=== PATIENT | male | born 1980 | race Caucasian/White ===

== ENCOUNTER 2022-01-22 16:00 | Emergency (ER) | payer MEDICAID ==
[~2022-01-22] VITALS: Ht 180.3 cm; Wt 86.2 kg
[2022-01-22] MEDS ORDERED: AMPH15TA2 PO (16:48)
--- NOTE | 2022-01-22 16:49 | NUR ---
ANXIETY ATTACK; OFF HIS PSYCH MEDS FOR 4 DAYS.
--- NOTE | 2022-01-22 16:58 | NUR ---
Patient does not wish to proceed with medical care recommended by Dr. Boateng. Patient given information related to possible complications, up to and including , which could occur as a result of leaving the hospital at this time. Patient verbalizes understanding of risks involved due to leaving against medical advice. Patient has signed AMA form.
[2022-01-22 16:59] VITALS: BP 131/76
== END 2022-01-22 16:59 | disposition left against medical advice (07) ==
LOC: ER 16:03
DX: F41.9 Anxiety disorder, unspecified (principal); F32.A Depression, unspecified; Z79.899 Other long term (current) drug therapy

== ENCOUNTER 2022-05-29 10:34 | Inpatient (IN) | payer MEDICAID ==
[~2022-05-29] VITALS: Ht 180.3 cm; Wt 86.2 kg
[~2022-05-29 10:34] MED LIST: AMPH15TA2 PO
--- NOTE | 2022-05-29 10:52 | NUR ---
R HIP PAIN SINCE FRIDAY S/P HIP REPLACEMENT SURGERY. TO ER BED 3, HOOKED TO MONITOR, CHANGED TO HOSP GOWN, WARM BLANKET PROVIDED, PATIENT AAOx4, NOT IN DISTRESS, AWAITING MD BAZAN
--- NOTE | 2022-05-29 11:34 | NUR ---
DR CAST AT BEDSIDE
[2022-05-29] MEDS ORDERED: ONDANSETRON HCL/PF 4 MG/2 ML VIAL ONE (11:49)
[2022-05-29] MEDS ORDERED: MORPHINE SULFATE INJ 4 MG/ML DISP.SYRIN ONE ×2 (11:49→13:40)
[2022-05-29] MEDS ORDERED: ONDANSETRON HCL/PF 4 MG/2 ML VIAL IV ONE (12:00)
[2022-05-29] MEDS ORDERED: IV NS 0.9% 1,000 ML IV ONE (12:00)
[2022-05-29] MEDS ORDERED: MORPHINE SULFATE INJ 2 MG/ML DISP.SYRIN IV ONE ×2 (12:00→13:00)
--- NOTE | 2022-05-29 12:18 | NUR ---
RAPID COVID SWAB DONE AND SENT TO LAB
[2022-05-29 12:20] LABS: BASOPHILS # (AUTO) 0.1 K/uL (0.0-0.2); BASOPHILS % (AUTO) 0.9 % (0.0-2.0); EOSINOPHILS % (AUTO) 1.1 % (0.0-6.0); HEMATOCRIT 39 % (39-51); HEMOGLOBIN 12.9 g/dL (13.5-17.5); LYMPHOCYTES % (AUTO) 18.8 % (20.0-44.0); MEAN CORPUSCULAR HGB CONC 33 g/dl (31.0-36.0); MEAN CORPUSCULAR VOLUME 94 fL (80-96); MONOCYTES # (AUTO) 0.4 K/uL (0.1-1.30); MONOCYTES % (AUTO) 4.2 % (2.0-12.0); NEUTROPHILS # (AUTO) 7.9 K/uL (1.8-8.9); PLATELET COUNT (AUTO) 381 K/uL (150-450); RED BLOOD CELL COUNT(AUTO) 4.09 MIL/uL (4.5-6.0); WHITE BLOOD COUNT (AUTO) 10.6 K/uL (4.3-11.0)
[2022-05-29 12:52] LABS: CALCIUM, SERUM 9.5 mg/dL (8.5-10.1); CREATININE 0.9 mg/dL (0.6-1.3); POTASSIUM 4.4 mmol/L (3.5-5.1)
[2022-05-29] MEDS ORDERED: ALPR2TAB2 PO (13:02)
[2022-05-29] MEDS ORDERED: HYDR-3980 PO (13:02)
--- NOTE | 2022-05-29 16:13 | NUR ---
GOT BED 304-1
--- NOTE | 2022-05-29 16:28 | NUR ---
REPORT GIVEN TO [facility] UNIT
[2022-05-29] MEDS ORDERED: ONDANSETRON HCL/PF 4 MG/2 ML VIAL IVP PRN (17:30)
[2022-05-29] MEDS ORDERED: Z GUARD REMEDY 4 OZ OINT TP PRN (17:30)
[2022-05-29] MEDS ORDERED: ACETAMINOPHEN 325 MG TABLET PO PRN (17:30)
[2022-05-29] MEDS: ENOXAPARIN SODIUM 40 MG/0.4 ML DISP.SYRIN SQ SCH (17:32)
[2022-05-29] MEDS: MORPHINE SULFATE INJ 2 MG/ML DISP.SYRIN IV PRN ×2 (17:34→21:54)
[2022-05-29] MEDS: ALPRAZOLAM 0.5 MG TABLET PO PRN (17:44)
[2022-05-29 18:35] VITALS: BP 127/70
--- NOTE | 2022-05-29 18:43 | NUR ---
RN ADMITTING/CLOSING NOTES PATIENT ARRIVED TO UNIT @1730 VIA GURNEY. PATIENT A/Ox4, ABLE TO MAKE NEEDS KNOWN. STABLE ON ROOM AIR. IV ACCESS RAC #20 SL. INTACT AND PATENT. PATIENT V/S STABLE, COMPLAINED OF PAIN REQUESTING PAIN MEDICATION. PATIENT WAS ORIENTED TO ROOM AND STAFF. PRN MORPHINE AND XANAX GIVEN BEFORE FULL BODY CHECK WAS COMPLETED. CARDIAC WNL, RESPIRATORY WNL, GI/ WNL, SKIN ISSUES: R HIP SURGICAL SITE AKILA AND DRESSING IN PLACE. ALL PRESCRIBED MEDICATION ADMINISTERED. SAFETY MEASURES MAINTAINED: BED LOCKED AND IN LOWEST POSITION, HOB ELEVATED, SIDE RAILS UPx2, CALL LIGHT WITHIN REACH. WILL ENDORSE TO NEXT SHIFT ANY FARSHAD.
--- NOTE | 2022-05-29 19:40 | NUR ---
RN OPENING NOTES; RECEIVED PT IN AAOX4,ABLE TO VERBALIZE NEEDS,RANJEET WELL ON RM AIR NO SIGN SOB/DISTRESS NOTED,NO COMPLAINE OF PAIN AND DISCOMFORT AT THIS TIME,IV ACCESS ON RAC 20G SL,PATENT AND INTACT,SAFETY MEASURE INPLACE,CALL LIGHT WITHIN REACH,WILL CONTINUE TO MONITOR.
[2022-05-29 20:00] VITALS: BP 119/92
--- NOTE | 2022-05-29 21:54 | NUR ---
RN NOTES; PT COMPLAINED OF RIGHT HIP PAIN 10/10,PRN MORPHINE 4MG INJ WAS GIVEN,NO SIGN A/R NOTED.
[2022-05-30] MEDS: MORPHINE SULFATE INJ 2 MG/ML DISP.SYRIN IV PRN ×5 (02:19→20:26)
--- NOTE | 2022-05-30 02:19 | NUR ---
RN NOTES; PT COMPLAINED OF RIGHT HIP PAIN 10/10,PRN MORPHINE 4MG INJ WAS GIVEN,NO SIGN A/R NOTED.
[2022-05-30 06:06] LABS: BASOPHILS # (AUTO) 0.1 K/uL (0.0-0.2); BASOPHILS % (AUTO) 0.8 % (0.0-2.0); EOSINOPHILS % (AUTO) 4.3 % (0.0-6.0); HEMATOCRIT 36 % (39-51); HEMOGLOBIN 11.8 g/dL (13.5-17.5); LYMPHOCYTES % (AUTO) 31.8 % (20.0-44.0); MEAN CORPUSCULAR HGB CONC 33 g/dl (31.0-36.0); MEAN CORPUSCULAR VOLUME 94 fL (80-96); MONOCYTES # (AUTO) 0.6 K/uL (0.1-1.30); NEUTROPHILS # (AUTO) 5.4 K/uL (1.8-8.9); NEUTROPHILS % (AUTO) 57.1 % (43.0-81.0); PLATELET COUNT (AUTO) 401 K/uL (150-450); RED BLOOD CELL COUNT(AUTO) 3.78 MIL/uL (4.5-6.0); WHITE BLOOD COUNT (AUTO) 9.5 K/uL (4.3-11.0)
[2022-05-30 06:27] LABS: CALCIUM, SERUM 8.9 mg/dL (8.5-10.1); CREATININE 0.8 mg/dL (0.6-1.3); MAGNESIUM 1.8 mg/dL (1.8-2.4); PHOSPHORUS 4.4 mg/dL (2.5-4.9); POTASSIUM 4.3 mmol/L (3.5-5.1)
--- NOTE | 2022-05-30 06:28 | NUR ---
RN CLOSING NOTES; PT IN BED AAOX4,ABLE TO VERBALIZE NEEDS,RANJEET WELL ON RM AIR NO SIGN SOB/DISTRESS NOTED, PT ASKING MORPHINE 4MG EVERY 4HRS,V/S WAS TAKEN WITHIN NORMAL LIMITS,DUE MEDS GIVEN ORDER,ALL NEEDS ATTENDED,IV ACCESS ON RAC 20G SL,PATENT AND INTACT,SAFETY MEASURE INPLACE,CALL LIGHT WITHIN REACH,WILL ENDORSED TO NEXT SHIFT.
--- NOTE | 2022-05-30 07:30 | NUR ---
RN OPENING NOTES RECEIVED PT IN BED, AWAKE, A/O X4, ABLE TO VERBALIZE NEEDS, ON ROOM AIR, NO SIGNS OF DISTRESS OR SOB. PATIENT IS COMPLAINING OF RIGHT HIP PAIN, REQUESTING PAIN MEDICATIONS. PT HAS IV ACCESS ON RAC 20G SL, IV PATENT AND INTACT, SAFETY MEASURE IN PLACE: CALL LIGHT WITHIN REACH, BED IN LOWEST LOCKED POSITION, SIDE RAILS UP X2, WILL CONTINUE TO MONITOR.
[2022-05-30 08:00] VITALS: BP 148/78
--- NOTE | 2022-05-30 08:00 | NUR ---
RN NOTES PATIENT COMPLAINING OF RIGHT HIP/LEG PAIN, RATING 9/10, MORPHINE 4MG GIVEN AT 0800. PATIENT WANTS PAIN MEDICATIONS ON THE CLOCK.
[2022-05-30] MEDS: ALPRAZOLAM 0.5 MG TABLET PO PRN ×2 (08:11→16:55)
[2022-05-30] MEDS ORDERED: GABA300C PO (08:44)
[2022-05-30] MEDS ORDERED: AMPHET ASP/AMPHET/D-AMPHET 10 MG TABLET PO SCH (09:00)
[2022-05-30 16:10] VITALS: BP 127/79
[2022-05-30] MEDS: ENOXAPARIN SODIUM 40 MG/0.4 ML DISP.SYRIN SQ SCH (18:27)
--- NOTE | 2022-05-30 18:57 | NUR ---
RN CLOSING NOTES PATIENT IN BED ALERT/ORIENTED X4, ABLE TO VERBALIZE NEEDS, ON ROOM AIR WITH NO SIGN SOB/DISTRESS NOTED, PT ASKING FOR MORPHINE 4MG EVERY 4HRS. ALL NEEDS ATTENDED, IV ACCESS ON RAC 20G SL, PATENT AND INTACT. PATIENT ANTICIPATED DISCHARGE FOR TONIGHT 05/30/22. SAFETY MEASURE IN PLACE, CALL LIGHT WITHIN REACH,WILL ENDORSED TO NEXT SHIFT.
--- NOTE | 2022-05-30 19:30 | NUR ---
MS RN OPENING NOTE RECEIVED PT BED, AWAKE. PT IS DISCHARGED, BUT HE IS AWAITING FOR HIS FRIEND TO PICK HIM UP AT 1999. PT A/O X 4, ABLE TO VERBALIZE NEEDS. NO ACUTE DISTRESS NOTED. RESPIRATION EVEN, AND UNLABORED. PT COMPLAINS OF PAIN TO RIGHT HIP. PAIN MED IN PLACE, BUT PAIN MED DUE AT 20:41. PT WAS EXPLAINED THAT PAIN MED MORPHINE IS NOT DUE YET. SAFETY MEASURES IN PLACE: BED LOCKED IN LOW POSITION, SIDE RAILS UP X 2, CALL LIGHT WITHIN REACH. WILL CONTINUE TO MONITOR PT.
[2022-05-30 20:00] VITALS: BP 134/78
--- NOTE | 2022-05-30 20:20 | NUR ---
MS RN NOTE PT IS DEMANDING TO GET HIS PAIN MED. EXPLAINED TO PT AGAIN THAT PAIN MED NOT DUE NOW. PT IS YELLING, AND CURSING. HE IS STATING THAT HE RECEIVED HIS PAIN MED LAST BEFORE 1600 INSTEAD OF 1641, AND IT HAS BEEN OVER 4 HOURS SINCE HE HAD HIS LAST PAIN MED. COMPUTER SHOWS THAT THE LAST TIME PT WAS GIVEN PAIN MED MORPHINE, WAS AT 1641. BUT PT IS ACCUSING NURSE, AND CHARGE NURSE OF DELAYING ADMINISTRATION OF PAIN MED.CHARGE NURSE PRESENT AT BEDSIDE. CHARGE NURSE STATES IT IS OK FOR NURSE TO ADMINISTER PAIN MED TO PT NOW. PAIN MED GIVEN TO PT. PT CALMS DOWN AFTER PAIN MED ADMINISTRATION.
--- NOTE | 2022-05-30 20:30 | NUR ---
CHARGE NURSE NOTES TALKED TO THE PATIENT REGARDING HIS LASERIST TIME FROM HIS FRIEND BECAUSE HE WAS DISCHARGED BY DR. WYMAN SINCE THIS AFTERNOON. PATIENT WAS EVEN ACCUSING THAT DR. WYMAN DOESN'T CARE AND NOBODY CARE . ASKING FOR HIS MORPHINE IV. EXPLAINED TO THE PATIENT THAT HIS PAIN MEDICATION IS NOT DUE YET BUT DOESN'T WANT TO LISTEN AND WAS CURSING.
--- NOTE | 2022-05-31 00:40 | NUR ---
CHARGE NURSE NOTES PATIENT SUPPOSED TO BED PICKED UP AT 2000 BUT PT. HE WAS TELLING ME THAT HIS FRIEND IS GOING TO BE PARTS CLERK AT 2330 BECAUSE HIS FRIEND NEEDS TO DROP HER CHILDREN TO THEIR FATHER AND HE NEEDS HIS MORPHINE 4MG IV WHICH IS NOT DUE AT THAT TIME. TALKED TO HIS PRIMARY NURSE AND TO GIVE IT HIS PAIN MEDICATION. PATIENT STATED THAT HE SUPPOSED TO GET PAIN MEDICATION EVERY 4HRS. INFORMED BABAK FORBES THAT PT CANNOT LEAVE TONIGHT BECAUSE AT THIS TIME STILL NOBODY'S PICKING HIM UP. WENT TO HIS ROOM TO INFORMED HIM THAT I ALREADY INFORMED THE DOCTOR THAT HE CAN'T LEAVE TONIGHT BUT TO MY SURPRISE HE WAS ACCUSING ME THAT "I WAS TELLING NURSE NOT TO GIVE HIS PAIN MEDICATION," THAT'S WHY THE NURSE DID NOT GIVE HIS PAIN MEDICATION ON TIME. PATIENT WAS CURSING AND SCREAMING. SECURITY CALLED
[2022-05-31] MEDS: MORPHINE SULFATE INJ 2 MG/ML DISP.SYRIN IV PRN ×3 (00:43→09:14)
--- NOTE | 2022-05-31 00:45 | NUR ---
MS RN NOTE PT IS ADMINISTERED PAIN MED FOR SECOND TIME DUE TO PAIN TO RIGHT HIP. PT IS ACCUSING CHARGE NURSE OF REFUSING NURSE TO GIVE HIM PAIN MED. BUT NURSE WAS TAKING CARE OF ANOTHER PT. SECURITY CALLED DUE TO PT'S AGGRESSIVE BEHAVIOR. SECURITY PRESENT AT BED SIDE, AND TAKING TO PT. PT CALMS DOWN AFTER. PT IS ALREADY REQUESTING HIS NEXT DOSE OF MORPHINE IN 4 HOURS. PT IS EXPLAINED THAT MORPHINE IS NEEDED, NOT AROUND THE CLOCK.
--- NOTE | 2022-05-31 07:30 | NUR ---
MS RN CLOSING NOTE LEFT PT RESTING IN BED. PT A/OX4, ABLE TO VERBALIZE NEEDS. ON ROOM AIR, TOLERATING WELL. NO S/S OF SOB/DISTRESS NOTED, PT ASKING FOR MORPHINE 4MG EVERY 4 HRS, V/S WAS TAKEN WITHIN NORMAL LIMITS. DUE MEDS GIVEN ORDER, ALL NEEDS ATTENDED, IV ACCESS ON R AC 20G SL, IV ACCESS PATENT AND INTACT. SAFETY MEASURE IN PLACE: CALL LIGHT WITHIN REACH, SR UP X2, BED IN LOCKED, AND IN LOW POSITION. WILL ENDORSED TO NEXT SHIFT RN.
--- NOTE | 2022-05-31 07:37 | NUR ---
ms rn received on bed, awake,alert,oriented x4,not in any form of distress, respirations even and unlabored,no sob noted, lungs are clear,abdomen soft,positive bowel sounds,denies pain at this time,all needs attended.
[2022-05-31 08:18] VITALS: BP 136/76
--- NOTE | 2022-05-31 09:00 | NUR ---
ms rn medicated for pain, pt needs to leave hospital today, will monitor.
--- NOTE | 2022-05-31 10:20 | NUR ---
ms yarn conditioner instructions given and understood, was supervisor tower by girlfriend,all needs attended.
[2022-05-31] MEDS: ALPRAZOLAM 0.5 MG TABLET PO PRN (10:23)
== END 2022-05-31 10:55 | disposition home health service (06) | DRG 349 ==
LOC: ER 10:41 → TRANSITION 16:06 → MED 16:17
PROVIDERS: ADMIT Nurse Practitioner Acute Care; ATTEND Nurse Practitioner Acute Care
DX: T84.84XA Pain due to internal orthopedic prosthetic devices, implants and grafts, initial encounter (principal); F32.A Depression, unspecified; F41.9 Anxiety disorder, unspecified; Y83.8 Other surgical procedures as the cause of abnormal reaction of the patient, or of later complication, without mention of misadventure at the time of the procedure; Y92.009 Unspecified place in unspecified non-institutional (private) residence as the place of occurrence of the external cause; F90.9 Attention-deficit hyperactivity disorder, unspecified type; Z20.822 Contact with and (suspected) exposure to COVID-19; V89.2XXD Person injured in unspecified motor-vehicle accident, traffic, subsequent encounter; Z88.1 Allergy status to other antibiotic agents; Z88.0 Allergy status to penicillin; Z79.899 Other long term (current) drug therapy; Z98.890 Other specified postprocedural states
CPT/HCPCS: 36415; 73700-TC; 80048-TC; 83735-TC; 84100-TC; 85025-TC; 87081-TC; 97110-TC; 97530-TC; A6253; C9803; G0378; J1650; J2270; J2405; J7030

== ENCOUNTER 2022-07-05 21:11 | Emergency (ER) | payer MEDICAID ==
[~2022-07-05] VITALS: Ht 180.3 cm; Wt 86.2 kg
[~2022-07-05 21:11] MED LIST changes: +ALPR2TAB2 PO; +GABA300C PO; +HYDR-3980 PO
[2022-07-05 21:43] VITALS: BP 138/84
[2022-07-05] MEDS ORDERED: KETO10TA2 PO (21:48)
[2022-07-05] MEDS ORDERED: HYDROCODONE/APAP 5/325MG TABLET ONE (21:56)
[2022-07-05] MEDS ORDERED: HYDROCODONE/APAP 5/325MG TABLET PO ONE (22:00)
--- NOTE | 2022-07-05 22:05 | NUR ---
Patient discharged to home in stable condition. Written and verbal after care instructions given. Patient verbalizes understanding of instruction.
== END 2022-07-05 22:07 | disposition home or self-care (01) ==
LOC: ER 21:25
DX: M25.551 Pain in right hip (principal); Z88.0 Allergy status to penicillin; Z88.8 Allergy status to other drugs, medicaments and biological substances; Z79.899 Other long term (current) drug therapy

== ENCOUNTER 2022-08-16 14:50 | Emergency (ER) | payer MEDICAID ==
[~2022-08-16] VITALS: Ht 180.3 cm; Wt 86.2 kg
[~2022-08-16 14:50] MED LIST changes: +KETO10TA2 PO
[2022-08-16 15:24] VITALS: BP 135/80
--- NOTE | 2022-08-16 15:58 | NUR ---
DR MAURICE W/ PT FOR EVAL
[2022-08-16] MEDS ORDERED: HYDROCODONE/APAP 10/325MG TABLET PO ONE (16:00)
[2022-08-16] MEDS ORDERED: HYDROCODONE/APAP 10/325MG TABLET ONE (16:02)
[2022-08-16] MEDS ORDERED: HYDR-3980 PO (16:06)
--- NOTE | 2022-08-16 16:10 | NUR ---
NORCO PO GIVEN INDICATED, RANJEET WELL.
--- NOTE | 2022-08-16 16:26 | NUR ---
Patient discharged to home in stable condition. Written and verbal after care instructions given. Patient verbalizes understanding of instruction.
== END 2022-08-16 16:26 | disposition home or self-care (01) ==
LOC: ER 14:57
DX: Z76.0 Encounter for issue of repeat prescription (principal); M25.551 Pain in right hip; Z96.641 Presence of right artificial hip joint; F17.200 Nicotine dependence, unspecified, uncomplicated; Z88.0 Allergy status to penicillin; Z88.8 Allergy status to other drugs, medicaments and biological substances; Z79.899 Other long term (current) drug therapy

== ENCOUNTER 2022-08-20 13:49 | Emergency (ER) | payer MEDICAID ==
[~2022-08-20] VITALS: Ht 180.3 cm; Wt 90.7 kg
[2022-08-20] MEDS ORDERED: IBUP-1955 PO (16:29)
[2022-08-20] MEDS ORDERED: CYCL5TAB PO (16:29)
[2022-08-20] MEDS ORDERED: HYDR-4209 PO (16:29)
[2022-08-20] MEDS ORDERED: HYDROCODONE/APAP 10/325MG TABLET PO ONE (16:30)
[2022-08-20] MEDS ORDERED: HYDROCODONE/APAP 10/325MG TABLET ONE (16:40)
--- NOTE | 2022-08-20 16:48 | NUR ---
Patient discharged to home in stable condition. patient prescriptions given. Written and verbal after care instructions given. Patient verbalizes understanding of instruction.
[2022-08-20 16:50] VITALS: BP 125/88
== END 2022-08-20 16:51 | disposition home or self-care (01) ==
LOC: ER 13:55
DX: Z76.0 Encounter for issue of repeat prescription (principal); M25.551 Pain in right hip; F41.9 Anxiety disorder, unspecified; F32.A Depression, unspecified; Z96.641 Presence of right artificial hip joint; Z88.0 Allergy status to penicillin; Z88.8 Allergy status to other drugs, medicaments and biological substances; Z79.899 Other long term (current) drug therapy

== ENCOUNTER 2022-10-07 16:43 | Emergency (ER) | payer MEDICAID ==
[~2022-10-07] VITALS: Ht 180.3 cm; Wt 96.6 kg
[~2022-10-07 16:43] MED LIST changes: +CYCL5TAB PO; +HYDR-4209 PO; +IBUP-1955 PO
[2022-10-07] MEDS ORDERED: HYDR-3976 GT (17:05)
[2022-10-07] MEDS ORDERED: HYDR-3976 PO (17:28)
[2022-10-07] MEDS ORDERED: IBUP-1955 PO (17:28)
[2022-10-07] MEDS ORDERED: KETOROLAC TROMETHAMINE INJ 30 MG/ML VIAL ONE (17:31)
[2022-10-07] MEDS ORDERED: HYDROCODONE/APAP 10/325MG TABLET ONE (17:31)
[2022-10-07] MEDS: KETOROLAC TROMETHAMINE INJ 60 MG/2 ML VIAL IM ONE (17:38)
[2022-10-07] MEDS: HYDROCODONE/APAP 10/325MG TABLET PO ONE (17:38)
[2022-10-07 17:39] VITALS: BP 142/84
== END 2022-10-07 17:41 | disposition home or self-care (01) ==
LOC: ER 16:50
DX: Z76.0 Encounter for issue of repeat prescription (principal); M25.551 Pain in right hip; M54.50 Low back pain, unspecified; F17.200 Nicotine dependence, unspecified, uncomplicated; Z88.0 Allergy status to penicillin; Z88.8 Allergy status to other drugs, medicaments and biological substances; Z79.899 Other long term (current) drug therapy
CPT/HCPCS: 99283; 96372; J1885

== ENCOUNTER 2022-10-22 03:22 | Emergency (ER) | payer MEDICAID ==
[~2022-10-22] VITALS: Ht 175.3 cm; Wt 91.2 kg
[~2022-10-22 03:22] MED LIST changes: +HYDR-3976 PO
[2022-10-22 03:33] VITALS: BP 161/67
--- NOTE | 2022-10-22 03:33 | NUR ---
BIBSELF C/O R HIP CHRONIC PAIN. REQUESTING MEDICATIONS TO HELP "SLEEP THE NIGHT". PT A/OX4. TOLERATING R/A WELL WITH NO RESP DISTRESS. SAFETY MEASURES IN PLACE.
[2022-10-22] MEDS ORDERED: HYDROCODONE/APAP 5/325MG TABLET ONE (03:41)
[2022-10-22] MEDS ORDERED: HYDROCODONE/APAP 5/325MG TABLET PO ONE (04:00)
== END 2022-10-22 04:06 | disposition home or self-care (01) ==
LOC: ER 03:25
DX: M25.551 Pain in right hip (principal); Z79.899 Other long term (current) drug therapy; Z98.890 Other specified postprocedural states; Z88.0 Allergy status to penicillin; Z88.8 Allergy status to other drugs, medicaments and biological substances

== ENCOUNTER 2023-11-22 18:31 | Emergency (ER) | payer MEDICAID, OTHER ==
[~2023-11-22] VITALS: Ht 180.3 cm; Wt 111.6 kg
[2023-11-22 20:02] LABS: BASOPHILS # (AUTO) 0.1 K/uL (0.0-0.2); BASOPHILS % (AUTO) 0.5 % (0.0-2.0); EOSINOPHILS % (AUTO) 0.3 % (0.0-6.0); HEMATOCRIT 46 % (39-51); HEMOGLOBIN 15.2 g/dL (13.5-17.5); LYMPHOCYTES # (AUTO) 1.6 K/uL (0.8-4.8); LYMPHOCYTES % (AUTO) 9.8 % (20.0-44.0); MEAN CORPUSCULAR HEMOGLOBIN 30 PG (26.0-33.0); MEAN CORPUSCULAR HGB CONC 33 g/dl (31.0-36.0); MEAN CORPUSCULAR VOLUME 91 fL (80-96); MONOCYTES # (AUTO) 0.5 K/uL (0.1-1.30); MONOCYTES % (AUTO) 2.7 % (2.0-12.0); NEUTROPHILS # (AUTO) 14.4 K/uL (1.8-8.9); NEUTROPHILS % (AUTO) 86.7 % (43.0-81.0); PLATELET COUNT (AUTO) 347 K/uL (150-450); RED BLOOD CELL COUNT(AUTO) 5.02 MIL/uL (4.5-6.0); RED CELL DISTRIBUTION WIDTH 14.1 % (11.5-15.0); WHITE BLOOD COUNT (AUTO) 16.7 K/uL (4.3-11.0)
[2023-11-22] MEDS: LEVETIRACETAM (500MG) 500 MG in IV NS 0.9% 100 ML IV ONE (20:03)
[2023-11-22 20:12] LABS: CALCIUM, SERUM 9.1 mg/dL (8.5-10.1); POTASSIUM 3.8 mmol/L (3.5-5.1)
[2023-11-22 20:17] LABS: ALBUMIN 3.8 g/dL (3.4-5.0); BILIRUBIN,DIRECT 0.1 mg/dL (0.0-0.2); BILIRUBIN,TOTAL 0.4 mg/dL (0.2-1.0)
[2023-11-22] MEDS ORDERED: LEVE500T9 PO (21:46)
[2023-11-23 00:05] VITALS: BP 140/88; TEMP 98.2; O2SAT 99
== END 2023-11-23 00:06 | disposition home or self-care (01) ==
LOC: ER 18:39
DX: G40.909 Epilepsy, unspecified, not intractable, without status epilepticus (principal); F17.200 Nicotine dependence, unspecified, uncomplicated; Z98.890 Other specified postprocedural states; Z79.899 Other long term (current) drug therapy; Z88.0 Allergy status to penicillin; Z88.1 Allergy status to other antibiotic agents
CPT/HCPCS: 99285; 96365; 70450; 85025; 80048; 80076; 36415; J7030; J1953

== ENCOUNTER 2024-11-03 07:17 | Inpatient (IN) | payer MEDICAID, OTHER ==
[~2024-11-03] VITALS: Ht 180.3 cm; Wt 89.8 kg
[2024-11-03 02:00] VITALS: BP 149/91; TEMP 98.6; O2SAT 98
[~2024-11-03 07:17] MED LIST changes: +LEVE500T9 PO
[2024-11-03] MEDS ORDERED: KETOROLAC TROMETHAMINE 15 MG/ML VIAL ONE (07:38)
[2024-11-03] MEDS ORDERED: FAMOTIDINE/PF INJ 20 MG/2 ML VIAL IV ONE (07:38)
[2024-11-03] MEDS ORDERED: METOCLOPRAMIDE HCL 10 MG/2 ML VIAL ONE (07:38)
[2024-11-03] MEDS: IV NS 0.9% 1,000 ML BAG IV ONE (07:44)
[2024-11-03] MEDS: FAMOTIDINE/PF INJ 20 MG/2 ML VIAL IV ONE (07:44)
[2024-11-03] MEDS: METOCLOPRAMIDE HCL 10 MG/2 ML VIAL IV ONE (07:45)
[2024-11-03] MEDS: KETOROLAC TROMETHAMINE 15 MG/ML VIAL IV ONE (07:45)
[2024-11-03 07:50] LABS: BASOPHILS % (AUTO) 0.3 % (0.0-2.0); EOSINOPHILS # (AUTO) 0.1 K/uL (0.0-0.7); EOSINOPHILS % (AUTO) 0.9 % (0.0-6.0); HEMATOCRIT 46 % (39-51); HEMOGLOBIN 15.7 g/dL (13.5-17.5); LYMPHOCYTES # (AUTO) 1.2 K/uL (0.8-4.8); LYMPHOCYTES % (AUTO) 9.3 % (20.0-44.0); MEAN CORPUSCULAR HEMOGLOBIN 33 PG (26.0-33.0); MEAN CORPUSCULAR HGB CONC 34 g/dl (31.0-36.0); MEAN CORPUSCULAR VOLUME 96 fL (80-96); MONOCYTES # (AUTO) 0.4 K/uL (0.1-1.30); MONOCYTES % (AUTO) 3.3 % (2.0-12.0); NEUTROPHILS # (AUTO) 11.2 K/uL (1.8-8.9); NEUTROPHILS % (AUTO) 86.2 % (43.0-81.0); PLATELET COUNT (AUTO) 212 K/uL (150-450); RED BLOOD CELL COUNT(AUTO) 4.77 MIL/uL (4.5-6.0); RED CELL DISTRIBUTION WIDTH 11.5 % (11.5-15.0)
[2024-11-03 07:56] LABS: CALCIUM, SERUM 9.1 mg/dL (8.5-10.1); CARBON DIOXIDE 31 mmol/L (21-32); CHLORIDE 100 mmol/L (98-107); CREATININE 1.2 mg/dL (0.6-1.3); GLUCOSE 174 mg/dL (74-106); POTASSIUM 3.3 mmol/L (3.5-5.1); SODIUM SERUM 141 mmol/L (136-145); UREA NITROGEN, BLOOD 17 mg/dL (7-18)
[2024-11-03 08:05] LABS: ALANINE AMINOTRANSFERASE 680 U/L (12-78); ALBUMIN 4.1 g/dL (3.4-5.0); ALKALINE PHOSPHATASE 347 U/L (46-116); ASPARTATE AMINOTRANSFERASE 333 U/L (15-37); BILIRUBIN,DIRECT 3.4 mg/dL (0.0-0.2); BILIRUBIN,TOTAL 4.5 mg/dL (0.2-1.0); TOTAL PROTEIN, SERUM 7.7 g/dL (6.4-8.2)
[2024-11-03] MEDS: MORPHINE SULFATE INJ 2 MG/ML DISP.SYRIN IV ONE ×2 (08:30→11:00)
[2024-11-03] MEDS ORDERED: MORPHINE SULFATE INJ 4 MG/ML DISP.SYRIN ONE ×2 (08:31→11:07)
[2024-11-03 08:32] LABS: LIPASE > 1500 U/L (16-77)
[2024-11-03] MEDS ORDERED: IOHEXOL-300 100 ML VIAL IV ONE (09:16)
[2024-11-03] MEDS ORDERED: IV NS 0.9% 250 ML IV ONE (09:16)
[2024-11-03] MEDS ORDERED: CT SWABBABLE VALVE TRANS SET 1 EA INFUS.SET MC ONE (09:16)
[2024-11-03] MEDS: IV LR 1000 ML 1,000 ML BAG IV ONE (10:00)
[2024-11-03] MEDS: CIPROFLOXACIN IV RTU 400 MG in PREMIX 1 EA IV SCH (11:30)
[2024-11-03] MEDS: FLAGYL/NS RTU 500 MG/100 ML PIGGYBACK IV ONE (12:30)
[2024-11-03] MEDS ORDERED: Z GUARD REMEDY 4 OZ OINT TP PRN (12:30)
[2024-11-03] MEDS ORDERED: DIAZ5TAB4 PO (12:35)
[2024-11-03] MEDS ORDERED: HYDR-3980 PO (12:35)
[2024-11-03] MEDS ORDERED: WEGOVY SQ (12:35)
[2024-11-03] MEDS ORDERED: HYDROMORPHONE 1 MG/1 ML DISP.SYRIN ONE (13:24)
[2024-11-03] MEDS: HYDROMORPHONE 1 MG/1 ML DISP.SYRIN IV PRN ×3 (13:27→18:32)
[2024-11-03] MEDS: IV NS 0.9% 1,000 ML IV PRN (14:25)
[2024-11-03] MEDS: POTASSIUM CHLORIDE 10 MEQ/50 ML PREMIXED IVPB FOR PERIPHERAL LINE IV ONE (14:49)
[2024-11-03 16:00] VITALS: BP 131/86; TEMP 98.8; O2SAT 98
[2024-11-03] MEDS: CEFTRIAXONE 1 G in IV D5W 50 ML IV SCH (16:38)
[2024-11-03] MEDS: ONDANSETRON HCL/PF 4 MG/2 ML VIAL IVP PRN (16:51)
[2024-11-03 20:00] VITALS: TEMP 99.5
[2024-11-03] MEDS: METRONIDAZOLE 500MG/ NS 100ML 500 MG in PREMIX 1 EA IV SCH (20:46)
[2024-11-03] MEDS: FAMOTIDINE/PF INJ 20 MG/2 ML VIAL IV SCH (20:47)
[2024-11-03] MEDS: HYDROMORPHONE 1 MG/1 ML DISP.SYRIN IV ONE (22:12)
[2024-11-03] MEDS ORDERED: CIPROFLOXACIN IV RTU 200 ML IV ONE (23:56)
[2024-11-04 02:33] VITALS: BP 139/89; TEMP 98.2; O2SAT 100
[2024-11-04 06:26] VITALS: BP 142/85; TEMP 98.7; O2SAT 98
[2024-11-04 07:26] LABS: BASOPHILS % (AUTO) 0.1 % (0.0-2.0); HEMATOCRIT 42 % (39-51); HEMOGLOBIN 14.4 g/dL (13.5-17.5); LYMPHOCYTES # (AUTO) 0.7 K/uL (0.8-4.8); LYMPHOCYTES % (AUTO) 6.6 % (20.0-44.0); MEAN CORPUSCULAR HEMOGLOBIN 33 PG (26.0-33.0); MEAN CORPUSCULAR HGB CONC 34 g/dl (31.0-36.0); MEAN CORPUSCULAR VOLUME 95 fL (80-96); MONOCYTES # (AUTO) 0.3 K/uL (0.1-1.30); NEUTROPHILS % (AUTO) 90.3 % (43.0-81.0); PLATELET COUNT (AUTO) 161 K/uL (150-450); RED BLOOD CELL COUNT(AUTO) 4.44 MIL/uL (4.5-6.0); RED CELL DISTRIBUTION WIDTH 11.6 % (11.5-15.0); WHITE BLOOD COUNT (AUTO) 11.1 K/uL (4.3-11.0)
[2024-11-04 08:00] VITALS: BP 136/81; TEMP 97.6; O2SAT 99
[2024-11-04 08:04] LABS: ALANINE AMINOTRANSFERASE 430 U/L (12-78); ALBUMIN 3.2 g/dL (3.4-5.0); ALKALINE PHOSPHATASE 251 U/L (46-116); ASPARTATE AMINOTRANSFERASE 166 U/L (15-37); BILIRUBIN,DIRECT 3.3 mg/dL (0.0-0.2); BILIRUBIN,TOTAL 4.5 mg/dL (0.2-1.0); CALCIUM, SERUM 8.6 mg/dL (8.5-10.1); CARBON DIOXIDE 26 mmol/L (21-32); CHLORIDE 102 mmol/L (98-107); CREATININE 0.7 mg/dL (0.6-1.3); GLUCOSE 133 mg/dL (74-106); MAGNESIUM 1.5 mg/dL (1.8-2.4); PHOSPHORUS 2.8 mg/dL (2.5-4.9); POTASSIUM 3.3 mmol/L (3.5-5.1); SODIUM SERUM 139 mmol/L (136-145); TOTAL PROTEIN, SERUM 6.4 g/dL (6.4-8.2); UREA NITROGEN, BLOOD 12 mg/dL (7-18)
[2024-11-04] MEDS: HYDROMORPHONE 1 MG/1 ML DISP.SYRIN IV ONE ×3 (08:37→22:14)
[2024-11-04 08:52] LABS: LIPASE > 1500 U/L (16-77)
[2024-11-04 09:19] VITALS: BP 136/81; TEMP 97.6; O2SAT 99
[2024-11-04] MEDS: Magnesium 1GM/D5W 100ML PREMIX 100 ML IV SCH (12:38)
[2024-11-04] MEDS: POTASSIUM CHLORIDE 10 MEQ/50 ML PREMIXED IVPB FOR PERIPHERAL LINE IV ONE (13:26)
[2024-11-04 16:00] VITALS: BP 153/92; TEMP 99.5; O2SAT 98
[2024-11-04 20:16] VITALS: BP 142/102; TEMP 98.6; O2SAT 98
[2024-11-05] MEDS: HYDROMORPHONE 1 MG/1 ML DISP.SYRIN IV ONE (02:28)
[2024-11-05 06:39] LABS: BASOPHILS # (AUTO) 0.1 K/uL (0.0-0.2); BASOPHILS % (AUTO) 0.3 % (0.0-2.0); HEMATOCRIT 47 % (39-51); LYMPHOCYTES % (AUTO) 4.9 % (20.0-44.0); MEAN CORPUSCULAR HEMOGLOBIN 33 PG (26.0-33.0); MEAN CORPUSCULAR HGB CONC 34 g/dl (31.0-36.0); MEAN CORPUSCULAR VOLUME 95 fL (80-96); MONOCYTES # (AUTO) 0.6 K/uL (0.1-1.30); MONOCYTES % (AUTO) 2.9 % (2.0-12.0); NEUTROPHILS # (AUTO) 18.3 K/uL (1.8-8.9); NEUTROPHILS % (AUTO) 91.9 % (43.0-81.0); PLATELET COUNT (AUTO) 176 K/uL (150-450); RED BLOOD CELL COUNT(AUTO) 4.91 MIL/uL (4.5-6.0); RED CELL DISTRIBUTION WIDTH 11.6 % (11.5-15.0); WHITE BLOOD COUNT (AUTO) 19.9 K/uL (4.3-11.0)
[2024-11-05 06:48] LABS: ALANINE AMINOTRANSFERASE 325 U/L (12-78); ALBUMIN 2.8 g/dL (3.4-5.0); ALKALINE PHOSPHATASE 215 U/L (46-116); ASPARTATE AMINOTRANSFERASE 123 U/L (15-37); BILIRUBIN,DIRECT 3.8 mg/dL (0.0-0.2); BILIRUBIN,TOTAL 4.8 mg/dL (0.2-1.0); CALCIUM, SERUM 8.1 mg/dL (8.5-10.1); CARBON DIOXIDE 26 mmol/L (21-32); CHLORIDE 102 mmol/L (98-107); CREATININE 0.8 mg/dL (0.6-1.3); GLUCOSE 113 mg/dL (74-106); MAGNESIUM 1.7 mg/dL (1.8-2.4); POTASSIUM 3.6 mmol/L (3.5-5.1); SODIUM SERUM 138 mmol/L (136-145); TOTAL PROTEIN, SERUM 6.5 g/dL (6.4-8.2); UREA NITROGEN, BLOOD 12 mg/dL (7-18)
[2024-11-05 07:25] LABS: LIPASE > 375 U/L (16-77)
[2024-11-05 08:42] VITALS: BP 109/69; TEMP 98.2; O2SAT 96
[2024-11-05] MEDS: Magnesium 1GM/D5W 100ML PREMIX 100 ML IV SCH (09:35)
[2024-11-05] MEDS: HYDROMORPHONE 1 MG/1 ML DISP.SYRIN IV PRN ×2 (10:16→14:08)
[2024-11-05 16:03] VITALS: BP 141/103; TEMP 98.2; O2SAT 95
[2024-11-05 20:00] VITALS: BP 140/91; TEMP 98.2; O2SAT 98
[2024-11-05 21:00] VITALS: BP 140/90; TEMP 98.2; O2SAT 98
[2024-11-05] MEDS ORDERED: FENTANYL PF 100MCG/2ML AMPUL ONE (22:22)
[2024-11-05] MEDS ORDERED: MIDAZOLAM HCL 2 MG/2ML VIAL ONE (22:22)
[2024-11-05] MEDS ORDERED: HYDROMORPHONE INJ 2 MG/ML DISP.SYRIN ONE (22:45)
[2024-11-05] MEDS ORDERED: FENTANYL PF 100MCG/2ML AMPUL IV PRN (23:00)
[2024-11-05] MEDS ORDERED: IOHEXOL 0 ML IV ONE (23:14)
[2024-11-05] MEDS ORDERED: LIDOCAINE 1%-EPI 1:100,000 20 ML VIAL ONE (23:14)
[2024-11-05] MEDS ORDERED: BUPIVACAINE 0.5 % PF 150 MG/30 ML VIAL ONE (23:14)
[2024-11-05] MEDS ORDERED: INDOCYANINE GREEN 25 MG/VIAL VIAL IJ ONE (23:35)
[2024-11-06] MEDS ORDERED: CELLULOSE,OXIDIZED 1 EA PACK MC ONE (00:05)
[2024-11-06] MEDS ORDERED: HYDROMORPHONE INJ 2 MG/ML DISP.SYRIN ONE (02:01)
[2024-11-06] MEDS: HYDROMORPHONE INJ 2 MG/ML DISP.SYRIN IV PRN (02:04)
[2024-11-06 02:46] LABS: BASOPHILS # (AUTO) 0.1 K/uL (0.0-0.2); BASOPHILS % (AUTO) 0.7 % (0.0-2.0); EOSINOPHILS % (AUTO) 0.2 % (0.0-6.0); HEMATOCRIT 42 % (39-51); HEMOGLOBIN 14.2 g/dL (13.5-17.5); LYMPHOCYTES # (AUTO) 0.5 K/uL (0.8-4.8); LYMPHOCYTES % (AUTO) 2.8 % (20.0-44.0); MEAN CORPUSCULAR HEMOGLOBIN 33 PG (26.0-33.0); MEAN CORPUSCULAR HGB CONC 34 g/dl (31.0-36.0); MEAN CORPUSCULAR VOLUME 96 fL (80-96); MONOCYTES # (AUTO) 0.4 K/uL (0.1-1.30); MONOCYTES % (AUTO) 2.6 % (2.0-12.0); NEUTROPHILS # (AUTO) 15.3 K/uL (1.8-8.9); NEUTROPHILS % (AUTO) 93.7 % (43.0-81.0); PLATELET COUNT (AUTO) 145 K/uL (150-450); RED BLOOD CELL COUNT(AUTO) 4.34 MIL/uL (4.5-6.0); RED CELL DISTRIBUTION WIDTH 11.5 % (11.5-15.0); WHITE BLOOD COUNT (AUTO) 16.3 K/uL (4.3-11.0)
[2024-11-06 03:03] LABS: INR 1.15 (0.91-1.10); PARTIAL THROMBOPLASTIN TIME 29.9 SEC (24.3-34.3); PROTHROMBIN TIME 12.1 SECS (9.2-11.1)
[2024-11-06 03:06] LABS: ALBUMIN 2.2 g/dL (3.4-5.0); BILIRUBIN,DIRECT 2.6 mg/dL (0.0-0.2); BILIRUBIN,TOTAL 3.2 mg/dL (0.2-1.0); CREATININE 0.6 mg/dL (0.6-1.3); POTASSIUM 3.6 mmol/L (3.5-5.1); TOTAL PROTEIN, SERUM 5.6 g/dL (6.4-8.2)
[2024-11-06 03:15] LABS: CALCIUM, SERUM 7.6 mg/dL (8.5-10.1)
[2024-11-06 08:00] VITALS: BP 142/78; TEMP 98.2; O2SAT 94
[2024-11-06 16:00] VITALS: BP_SYST 101; BP_SYST 140; BP_DIAS 62; BP_DIAS 69; TEMP 97.9; TEMP 98.8; O2SAT 98; O2SAT 99
[2024-11-06 20:00] VITALS: BP 151/87; TEMP 98.6; O2SAT 98
[2024-11-06] MEDS: LORAZEPAM INJ 2 MG/ML VIAL IM PRN (22:08)
[2024-11-07 05:57] LABS: BASOPHILS % (AUTO) 0.3 % (0.0-2.0); EOSINOPHILS % (AUTO) 0.1 % (0.0-6.0); HEMATOCRIT 38 % (39-51); HEMOGLOBIN 13.2 g/dL (13.5-17.5); LYMPHOCYTES # (AUTO) 0.9 K/uL (0.8-4.8); LYMPHOCYTES % (AUTO) 6.9 % (20.0-44.0); MEAN CORPUSCULAR HEMOGLOBIN 33 PG (26.0-33.0); MEAN CORPUSCULAR HGB CONC 35 g/dl (31.0-36.0); MEAN CORPUSCULAR VOLUME 96 fL (80-96); MONOCYTES # (AUTO) 0.8 K/uL (0.1-1.30); MONOCYTES % (AUTO) 6.1 % (2.0-12.0); NEUTROPHILS # (AUTO) 11.2 K/uL (1.8-8.9); NEUTROPHILS % (AUTO) 86.6 % (43.0-81.0); PLATELET COUNT (AUTO) 183 K/uL (150-450); RED BLOOD CELL COUNT(AUTO) 3.96 MIL/uL (4.5-6.0); RED CELL DISTRIBUTION WIDTH 11.7 % (11.5-15.0); WHITE BLOOD COUNT (AUTO) 12.9 K/uL (4.3-11.0)
[2024-11-07 07:00] VITALS: BP 145/93; TEMP 98.1; O2SAT 98
[2024-11-07 07:00] LABS: BILIRUBIN,DIRECT 0.9 mg/dL (0.0-0.2); BILIRUBIN,TOTAL 1.4 mg/dL (0.2-1.0); CALCIUM, SERUM 7.7 mg/dL (8.5-10.1); CREATININE 0.6 mg/dL (0.6-1.3); POTASSIUM 3.1 mmol/L (3.5-5.1); TOTAL PROTEIN, SERUM 5.4 g/dL (6.4-8.2)
[2024-11-07] MEDS: POTASSIUM CL. PREMIX PERIPHER. 50 ML IV SCH (11:14)
[2024-11-07] MEDS: HYDROMORPHONE INJ 2 MG/ML DISP.SYRIN IV PRN (11:17)
[2024-11-07 16:00] VITALS: BP 149/93; TEMP 98.4; O2SAT 99
[2024-11-07] MEDS ORDERED: INDOMETHACIN 100 MG SUPP.RECT ONE (16:58)
[2024-11-07] MEDS ORDERED: IOHEXOL 50 ML IV ONE ×2 (16:58)
[2024-11-07] MEDS ORDERED: FENTANYL PF 100MCG/2ML AMPUL ONE (17:25)
[2024-11-07] MEDS ORDERED: HYDROMORPHONE INJ 2 MG/ML DISP.SYRIN IV PRN (17:30)
[2024-11-07] MEDS ORDERED: MIDAZOLAM HCL 2 MG/2ML VIAL ONE (17:31)
[2024-11-07] MEDS ORDERED: ANESTHESIA TRAY IN PYXIS 1 EA TRAY MC ONE (18:48)
[2024-11-07 20:00] VITALS: BP 149/99; TEMP 98.1; O2SAT 97
[2024-11-08 08:28] VITALS: BP_SYST 138; BP_SYST 145; BP_DIAS 69; BP_DIAS 81; TEMP 98.1; TEMP 98.2; O2SAT 100
[2024-11-08 16:00] VITALS: BP 133/89; TEMP 97.9; O2SAT 98
[2024-11-08 20:00] VITALS: BP 129/82; TEMP 98.1; O2SAT 97
[2024-11-09 06:58] LABS: BASOPHILS # (AUTO) 0.1 K/uL (0.0-0.2); BASOPHILS % (AUTO) 0.6 % (0.0-2.0); EOSINOPHILS # (AUTO) 0.1 K/uL (0.0-0.7); HEMATOCRIT 38 % (39-51); HEMOGLOBIN 12.8 g/dL (13.5-17.5); LYMPHOCYTES # (AUTO) 1.8 K/uL (0.8-4.8); MEAN CORPUSCULAR HEMOGLOBIN 32 PG (26.0-33.0); MEAN CORPUSCULAR HGB CONC 33 g/dl (31.0-36.0); MEAN CORPUSCULAR VOLUME 95 fL (80-96); MONOCYTES # (AUTO) 1.1 K/uL (0.1-1.30); MONOCYTES % (AUTO) 8.2 % (2.0-12.0); NEUTROPHILS # (AUTO) 10.5 K/uL (1.8-8.9); NEUTROPHILS % (AUTO) 77.2 % (43.0-81.0); PLATELET COUNT (AUTO) 316 K/uL (150-450); RED BLOOD CELL COUNT(AUTO) 4.03 MIL/uL (4.5-6.0); RED CELL DISTRIBUTION WIDTH 11.6 % (11.5-15.0); WHITE BLOOD COUNT (AUTO) 13.7 K/uL (4.3-11.0)
[2024-11-09 07:49] LABS: BILIRUBIN,DIRECT 0.5 mg/dL (0.0-0.2); BILIRUBIN,TOTAL 0.7 mg/dL (0.2-1.0); CALCIUM, SERUM 7.8 mg/dL (8.5-10.1); CREATININE 0.7 mg/dL (0.6-1.3); POTASSIUM 3.2 mmol/L (3.5-5.1); TOTAL PROTEIN, SERUM 5.5 g/dL (6.4-8.2)
[2024-11-09 08:00] VITALS: BP 119/79; TEMP 98.6; O2SAT 97
[2024-11-09] MEDS: POTASSIUM CHLORIDE 20 MEQ POWDER PACKET PO SCH (10:32)
[2024-11-09] MEDS: HYDROMORPHONE INJ 2 MG/ML DISP.SYRIN IV PRN ×2 (10:38→14:58)
[2024-11-09] MEDS: METRONIDAZOLE 500 MG TABLET PO SCH (12:48)
[2024-11-09] MEDS ORDERED: HYDROCODONE/APAP 5/325MG TABLET PO PRN (14:30)
[2024-11-09] MEDS ORDERED: DIAZEPAM 2 MG TABLET PO PRN (15:30)
[2024-11-09 16:00] VITALS: BP 125/75; TEMP 98.6; O2SAT 96
[2024-11-09] MEDS: HYDROCODONE/APAP 10/325MG TABLET PO PRN (18:00)
[2024-11-09 20:00] VITALS: BP 123/68; TEMP 98.2; O2SAT 97
[2024-11-10] VITALS: BP 97/53; TEMP 97.7; O2SAT 98
[2024-11-10 08:00] VITALS: BP 125/77; TEMP 98.8; O2SAT 97
[2024-11-10 08:08] LABS: ALBUMIN 1.8 g/dL (3.4-5.0); BILIRUBIN,TOTAL 0.6 mg/dL (0.2-1.0); CALCIUM, SERUM 7.8 mg/dL (8.5-10.1); CREATININE 0.7 mg/dL (0.6-1.3); POTASSIUM 3.2 mmol/L (3.5-5.1); TOTAL PROTEIN, SERUM 5.1 g/dL (6.4-8.2)
[2024-11-10] MEDS: FAMOTIDINE (20 MG) 20 MG TABLET PO SCH (09:07)
[2024-11-10 10:04] VITALS: BP 125/77; TEMP 98.8; O2SAT 97
[2024-11-10] MEDS ORDERED: HYDR-3972 PO (10:21)
[2024-11-10] MEDS ORDERED: DIAZ5TAB PO (10:21)
[2024-11-10] MEDS: POTASSIUM CHLORIDE 20 MEQ TAB.PRT.SR PO SCH (10:23)
[2024-11-10 16:00] VITALS: BP 107/79; TEMP 98.1; O2SAT 96
== END 2024-11-10 16:43 | disposition home health service (06) | DRG 263 ==
LOC: ER 07:22 → MED 13:13
PROVIDERS: ADMIT Nurse Practitioner Family; ATTEND Nurse Practitioner Acute Care
PROC: 0FT44ZZ Resection of Gallbladder, Percutaneous Endoscopic Approach (ICD-10-PCS; 2024-11-05)
PROC: BF13YZZ Fluoroscopy of Gallbladder and Bile Ducts using Other Contrast (ICD-10-PCS; 2024-11-05)
PROC: 0FD04ZX Extraction of Liver, Percutaneous Endoscopic Approach, Diagnostic (ICD-10-PCS; 2024-11-05)
PROC: BF5C200 Other Imaging of Hepatobiliary System, All using Fluorescing Agent, Indocyanine Green Dye, Intraoperative (ICD-10-PCS; 2024-11-05)
PROC: BF13YZZ Fluoroscopy of Gallbladder and Bile Ducts using Other Contrast (ICD-10-PCS; 2024-11-07)
PROC: 0F798ZZ Dilation of Common Bile Duct, Via Natural or Artificial Opening Endoscopic (ICD-10-PCS; principal; 2024-11-07 17:30)
DX: K80.42 Calculus of bile duct with acute cholecystitis without obstruction (principal); K85.90 Acute pancreatitis without necrosis or infection, unspecified; E87.6 Hypokalemia; G40.909 Epilepsy, unspecified, not intractable, without status epilepticus; E80.6 Other disorders of bilirubin metabolism; G89.4 Chronic pain syndrome; D72.829 Elevated white blood cell count, unspecified; F41.9 Anxiety disorder, unspecified; Z88.1 Allergy status to other antibiotic agents; Z88.0 Allergy status to penicillin; F17.200 Nicotine dependence, unspecified, uncomplicated; Z98.890 Other specified postprocedural states; Z79.899 Other long term (current) drug therapy; R74.01 Elevation of levels of liver transaminase levels; R73.9 Hyperglycemia, unspecified; Z79.891 Long term (current) use of opiate analgesic
CPT/HCPCS: 36415; 74018; 74181-TC; 76705-TC; 80048-TC; 80053-TC; 80076-TC; 83690-TC; 83735-TC; 84100-TC; 85025-TC; 85610-TC; 85730-TC; 86850-TC; 87040-TC; 87081-TC; 97110-TC; 97112-TC; 97116-TC; 97530-TC; 97535-TC; A4216; A4223; G0378; J0330; J0690; J0696; J0744; J1100; J1171; J1885; J2060; J2250; J2270; J2405; J2704; J2765; J3010; J3475; J3480; J3490; J7030; J7050; J7060; Q9967; Q9968

== ENCOUNTER 2025-06-01 21:57 | Emergency (ER) | payer OTHER ==
[~2025-06-01] VITALS: Ht 177.8 cm; Wt 77.1 kg
[~2025-06-01 21:57] MED LIST changes: -ALPR2TAB2 PO; -AMPH15TA2 PO; -CYCL5TAB PO; +DIAZ5TAB PO; +DIAZ5TAB4 PO; -GABA300C PO; +HYDR-3972 PO; -HYDR-3976 PO; -HYDR-4209 PO; -IBUP-1955 PO; -KETO10TA2 PO; -LEVE500T9 PO; +WEGOVY SQ
[2025-06-01 23:54] VITALS: BP 107/69; TEMP 97.7; O2SAT 98
== END 2025-06-02 00:02 | disposition left against medical advice (07) ==
LOC: ER 22:02
DX: R51.9 Headache, unspecified (principal); J02.9 Acute pharyngitis, unspecified; F12.90 Cannabis use, unspecified, uncomplicated; F17.200 Nicotine dependence, unspecified, uncomplicated; G40.909 Epilepsy, unspecified, not intractable, without status epilepticus; K08.89 Other specified disorders of teeth and supporting structures; Z79.891 Long term (current) use of opiate analgesic; Z88.0 Allergy status to penicillin; Z88.1 Allergy status to other antibiotic agents; Z53.21 Procedure and treatment not carried out due to patient leaving prior to being seen by health care provider